=== PATIENT | female | born 1955 | race Caucasian/White ===

== ENCOUNTER 2022-05-23 23:17 | Inpatient (IN) | payer MEDICARE, SELFPAY ==
--- NOTE | 2022-05-23 | ECG_ITS ---
Test Reason : CHEST PAIN Blood Pressure : / mmHG Vent. Rate : 067 BPM Atrial Rate : 067 BPM P-R Int : 168 ms QRS Dur : 090 ms QT Int : 454 ms P-R-T Axes : 053 038 026 degrees QTc Int : 479 ms Normal sinus rhythm RSR' or QR pattern in V1 suggests right ventricular conduction delay Nonspecific T wave abnormality Inferior leads Abnormal ECG When compared with ECG of 23-MAY-2022 23:24, T wave inversion now evident in Inferior leads Referred By: Em Salguero Electronically Signed By:ONI MEDELLIN MD
--- NOTE | ~2022-05-23 | CT_ITS ---
EXAMINATION: CT ANGIOGRAM OF THE CHEST; CT ANGIOGRAM OF THE ABDOMEN AND PELVIS INDICATION: Chest pain, hypertension COMPARISON: None TECHNIQUE: 85 MLO Omnipaque 350 IV contrast was utilized. Multidetector helical imaging was performed through the chest, abdomen, and pelvis. Coronal and sagittal reformatted images were created at the technologist workstation. DLP: 766 mGy-cm DOSE LOWERING TECHNIQUES: This CT examination was performed using dose optimization techniques as appropriate, variously including the following: - Automated exposure control - Adjustment of mA and/or kV according to patient size (this includes techniques or standardized protocols for targeted exams were dose is matched to indication/reason for exam; i.e. extremities or head) - Use of iterative reconstruction technique FINDINGS: Chest: No evidence of thoracic aortic aneurysm or dissection. 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 No central pulmonary embolus identified. No regions of consolidation bilaterally. There are multiple scattered subcentimeter nodules bilaterally, mostly measuring less than 5 mm, best seen on the axial MIP series. These appear overall greatest in number towards the lung bases. No pneumothorax or pleural effusion. Visualized thyroid gland is grossly unremarkable. There are subcentimeter mediastinal lymph nodes within the range of normal variation. Cardiac size is within normal limits; no pericardial effusion. No axillary lymphadenopathy is present. Abdomen/Pelvis: The liver is homogeneous in attenuation without intrahepatic biliary ductal dilatation. The gallbladder is unremarkable. The spleen, pancreas, and adrenal glands are within normal limits. Bilateral nephrograms are symmetric. No hydronephrosis. No obstructing renal or ureteral calculi are present. Small right renal cyst noted; no follow-up recommended. The urinary bladder is unremarkable. Multiple calcifications noted along the periphery of the uterus, which may reflect fibroids or vascular calcifications. No evidence of bowel obstruction. There is colonic diverticulosis without convincing diverticulitis. Appendix appears collapsed. No free fluid or free air is identified. No evidence of aortic aneurysm or dissection. The celiac, superior mesenteric, bilateral renal, and inferior mesenteric arteries are patent. An accessory left renal artery is noted. The bilateral iliac and visualized proximal femoral arteries are patent. No retroperitoneal or pelvic lymphadenopathy is seen. Mild scattered degenerative endplate changes in the spine. CT/CT angio abdomen pelvis IMPRESSION: 1. No evidence of aortic aneurysm or dissection. 2. Multiple scattered subcentimeter lung nodules, greatest in number towards the lung bases. These are nonspecific and may be infectious/inflammatory in etiology, though pulmonary metastases could also have this appearance. Clinical correlation is recommended. If no prior studies are available to assess chronicity, follow-up chest CT in 3 months is recommended. 3. Colonic diverticulosis without convincing diverticulitis.
--- NOTE | 2022-05-23 09:07 | ECG_ITS ---
Test Reason : chest pain Blood Pressure : / mmHG Vent. Rate : 053 BPM Atrial Rate : 053 BPM P-R Int : 190 ms QRS Dur : 088 ms QT Int : 516 ms P-R-T Axes : 046 003 -48 degrees QTc Int : 484 ms Sinus bradycardia T wave abnormality, consider anterolateral ischemia Abnormal ECG When compared with ECG of 24-MAY-2022 00:26, T wave inversion more evident in Inferior leads T wave inversion now evident in Anterolateral leads Referred By: Pasha Bolivar Electronically Signed By:ONI MEDELLIN MD
[2022-05-23 23:23] VITALS: BMI 30.9
[2022-05-23 23:24] VITALS: BP 204/127; PULSE 76; PULSE 77; RESP 11; O2SAT 99
[2022-05-23 23:54] LABS: MANUAL DIFF FLAG NO
[2022-05-23 23:55] LABS: Basophils Percent Auto 0.1 % (0-2); Eosinophils Absolute Auto 0.1 X10*3/uL (0.0-0.4); Eosinophils Percent Auto 1.3 % (0-4); Hematocrit 41.5 % (37.0-47.0); Hemoglobin 13.3 g/dl (12.0-16.0); Imm Gran Abs Auto 0.03 X10*3/uL (0.00-0.03); Imm Gran Pct Auto 0.4 % (0.0-0.4); Lymphocytes Absolute Auto 2.9 X10*3/uL (1.2-4.9); Lymphocytes Percent Auto 35.5 % (20-40); Mean Corpuscular Hemoglobin 28.1 pg (27.0-33.0); Mean Corpuscular Volume 87.6 fL (80.0-98.0); Mean Platelet Volume 8.9 fL (9.4-12.3); Monocytes Absolute Auto 0.5 X10*3/uL (0.1-1.2); Monocytes Percent Auto 5.8 % (2-11); Neutrophils Absolute Auto 4.7 x10*3/uL (2.0-8.3); Neutrophils Percent Auto 56.9 % (45-73); Platelet Count 186 X10*3/uL (160-400); Red Blood Count 4.74 X10*6/uL (4.20-5.50); Red Cell Distribution Width 14.6 % (11.0-16.0); White Blood Count 8.3 X10*3/uL (4.8-10.8)
[2022-05-24] VITALS (8 sets, daily range): BP systolic 138–172; BP diastolic 71–96; PULSE 56–69; RESP 10–21; TEMP 36.2–36.8; O2SAT 98–100; BMI 34.4
--- NOTE | 2022-05-24 00:01 | ED_ITS ---
HPI - Chest Pain General Chief Complaint: Chest Pain Stated Complaint: Chest pain Time Seen by Provider: 05/23/22 23:29 Source: patient and family Mode of arrival: ambulatory History of Present Illness HPI narrative: 66-year-old female with history of hypertension presents with onset of substernal chest pain that she states radiates into her back as well as into her left upper extremity that started while she was out with friends. Patient states she has been drinking alcohol and has had similar symptoms previously that were diagnosed as a panic attack. She denies any recent fever, chills, shortness of breath, GI or symptoms. She also denies being on any blood thinners. Related Data Allergies Allergy/AdvReac Type Severity Reaction Status Date / Time Unable to Assess Allergy Verified 05/23/22 23:30 Review of Systems Review of Systems: Pertinent positives and negatives as stated in HPI 10 point review of systems is otherwise negative. PMFSH Past Medical History Source: nursing notes reviewed Social History Social History Alcohol intake: current Alcohol intake frequency: a few times a month Alcohol type: beer and hard liquor Smoked in Last 30 Days: No Use of substances other than those prescribed or required for medical reasons: No Advance Directives: No Advance Directives Information Provided: No Physical Exam Vital Signs: Vital Signs: Last Vital Signs Temp 98.1 F 05/24/22 01:18 ED T Pulse 66 05/24/22 01:18 ED T Resp 16 05/24/22 01:18 ED T BP 166/84 H 05/24/22 01:18 ED T Pulse Ox 98 05/24/22 01:18 ED T O2 Del Method 05/24/22 01:18 ED T BMI result Body Mass Index 30.9 VITAL SIGNS: Reviewed. GENERAL: Well developed, well nourished, in no acute distress. HEAD: Normocephalic/atraumatic EYES: PERRLA, EOMI EARS: Ext canals without abnormality OROPHARYNX: no oral lesions noted, posterior pharynx clear LUNGS: Normal breath sounds. No adventitious sounds or accessory muscle use. SpO2<99> CARDIOVASCULAR: Regular rate and rhythm without noted murmurs, no JVD or lower extremity edema. ABDOMEN: Soft, non-tender, non-distended with bowel sounds. MUSCULOSKELETAL: No tenderness, deformities, or effusions noted on gross inspection. EXTREMITIES: No cyanosis, clubbing or edema;LUE: warm to touch, palpable radial/ulnar pulses. SKIN: Inspection of the skin reveals no rashes NEUROLOGIC: Alert and oriented x 4. Strength and sensation to light touch were grossly intact x 4. Course Course Course Narrative: 66-year-old female with history and clinical presentation concerning for possible dissection given the fact her blood pressure is over 200 systolic and 124 diastolic. Review of all investigations thus far without acute findings, troponin is 8.9 with an EKG that is otherwise benign, will repeat he 2nd troponin as well. CT dissection protocol spending, patient already appears much improved without any medication intervention to include the blood pressure. MDM - Chest Pain Lab Data Result diagrams: 05/23/22 23:51 05/23/22 23:51 Labs: Lab Results 05/23/22 05/23/22 05/23/22 Range/Units 23:51 23:51 23:51 WBC 8.3 (4.8-10.8) X10*3/uL RBC 4.74 (4.20-5.50) X10*6/uL Hgb 13.3 (12.0-16.0) g/dl Hct 41.5 (37.0-47.0) % MCV 87.6 (80.0-98.0) fL MCH 28.1 (27.0-33.0) pg MCHC 32.0 (31.0-35.0) g/dl RDW 14.6 (11.0-16.0) % Plt Count 186 (160-400) X10*3/uL MPV 8.9 L (9.4-12.3) fL Immature Gran % (Auto) 0.4 (0.0-0.4) % Neut % (Auto) 56.9 (45-73) % Lymph % (Auto) 35.5 (20-40) % [place] % (Auto) 5.8 (2-11) % Eos % (Auto) 1.3 (0-4) % Baso % (Auto) 0.1 (0-2) % Lymph # (Auto) 2.9 (1.2-4.9) X10*3/uL [place] # (Auto) 0.5 (0.1-1.2) X10*3/uL Eos # (Auto) 0.1 (0.0-0.4) X10*3/uL Baso # (Auto) 0.0 (0.0-0.2) X10*3/uL Abs Immat Gran (auto) 0.03 (0.00-0.03) X10*3/uL Absolute Neuts (auto) 4.7 (2.0-8.3) x10*3/uL Absolute Nucleated RBC 0.000 (0.0-0.012) X10*3/uL Nucleated RBC % (auto) 0.0 (0.0-0.2) /100WBC Sodium 142 (135-145) mmol/L Potassium 4.4 (3.3-5.1) mmol/L Chloride 105 (96-108) mmol/L Carbon Dioxide 23 (22-29) mmol/L Anion Gap 18 (12-20) BUN 14 (9-16) mg/dL Creatinine 0.90 (0.5-1.4) mg/dL Estim Creat Clear Calc 63.5 Estimated GFR > 60 Random Glucose 98 (60-115) mg/dL Calcium 9.1 (8.4-10.2) mg/dL Total Bilirubin 0.5 (0.0-1.0) mg/dL AST 22 (5-31) U/L ALT 16 (0-31) U/L Alkaline Phosphatase 78 (39-117) U/L Troponin I High Sens 8.9 (<3.5-17.0) ng/L Total Protein 7.3 (6.5-8.0) g/dL Albumin 4.2 (3.5-5.0) g/dL ECG Data ECG #1: Attestation: I personally reviewed and interpreted this ECG as follows: Prior ECG tracings: not available for review Interpretation: Normal sinus rhythm, HR-67, no STEMI, AR/QRS/QTC are within normal limits. Discharge Plan Discharge Clinical Impression: Chest pain Patient Disposition: Still a Patient Instructions: Chest Pain (ED), Hypertension (ED), DASH Eating Plan (ED)
[2022-05-24 00:19] LABS: Alanine Aminotransferase 16 U/L (0-31); Albumin Level 4.2 g/dL (3.5-5.0); Anion Gap 18 (12-20); Aspartate Amino Transferase 22 U/L (5-31); Bilirubin Total 0.5 mg/dL (0.0-1.0); Blood Urea Nitrogen 14 mg/dL (9-16); Calcium 9.1 mg/dL (8.4-10.2); Carbon Dioxide 23 mmol/L (22-29); Chloride 105 mmol/L (96-108); Creatinine Clr Calc Pharmacy 63.5; Estimated Glomerular Filt Rate > 60; Glucose Random 98 mg/dL (60-115); Potassium 4.4 mmol/L (3.3-5.1); Sodium 142 mmol/L (135-145); Total Protein 7.3 g/dL (6.5-8.0)
[2022-05-24 00:20] LABS: Alkaline Phosphatase 78 U/L (39-117)
[2022-05-24 00:22] LABS: Troponin-I High Sensitivity 8.9 ng/L (<3.5-17.0)
[2022-05-24] MEDS: iohexoL 350 MG/ML 100 ML INFUS..BTL IV (01:35)
[2022-05-24 03:03] LABS: Troponin-I High Sensitivity 366.3 ng/L (<3.5-17.0)
[2022-05-24] MEDS: Aspirin Enteric Coated 325 MG TABLET.DR PO (03:25)
--- NOTE | 2022-05-24 05:11 | PC.NURSE ---
Pt ambulated from bed to restroom and back independently. New set of vitals obtained, placed on monitor upon arrival on unit.
--- NOTE | 2022-05-24 06:14 | P.HPHOSP_ITS ---
History of Present Illness Date of Service: 05/24/22 Chief Complaint: chest pain 66-year-old female with past medical history of hypertension , hypothyroidism, asthma presents to the hospital with complaints of midsternal chest pain. Patient reports that the pain started while she was at a restaurant, the pain is on the left side of her chest, severe, radiating to left arm, lasted until she arrived at the ED, associated with some anxiety and shortness of breath. Patient denied having any headache, no change in vision, no palpitations, no abdominal pain nausea or vomiting, no diarrhea constipation, no urinary symptoms and no lower extremity edema Of note patient comes from [place], she reports that she was seen in [place] few days before for the same pain and at that time they told her that she was having a panic attack as her blood pressure was significantly elevated. On arrival to the ED her vitals are significant for a systolic blood pressure of 204/127, Labs are significant for WBC count of 8.3, hemoglobin of 13.3, CBC and CMP otherwise unremarkable. Troponin of 8.9 that increased to 366 increased to [address] T-wave changes Review of Systems Review of Systems: Yes all other systems are reviewed and are negative [facility] Medical History (Updated 05/24/22 @ 06:34 by Brayan Bennett MD) Asthma Hypertension Hypothyroidism Family History (Updated 05/24/22 @ 06:34 by Brayan Bennett MD) Father Coronary artery disease Surgical History (Updated 05/24/22 @ 06:34 by Brayan Bennett MD) History of Social History Alcohol intake: current Alcohol intake frequency: a few times a month Alcohol type: beer and hard liquor Smoked in Last 30 Days: No Use of substances other than those prescribed or required for medical reasons: No Advance Directives: No Advance Directives Information Provided: No Meds Allergies Allergy/AdvReac Type Severity Reaction Status Date / Time Unable to Assess Allergy Verified 05/23/22 23:30 Active Medications: Current Medications Acetaminophen (Acetaminophen 325 Mg Tablet) 650 mg PO Q6H PRN PRN Reason: Pain, Mild (Pain Scale 1-3) Docusate Sodium (Docusate Sodium 100 Mg Capsule) 100 mg PO DAILY PRN PRN Reason: Constipation Ondansetron HCl (Ondansetron Hcl 4 Mg/2 Ml Vial) 4 mg IVPUSH Q8H PRN PRN Reason: Nausea and Vomiting Sodium Chloride (0.9 % Sodium Chloride Flush 3 Ml Syringe) 3 ml IVFLUSH QSHIFT PAUL Physical Exam Vital Signs and Narrative: Vital Signs: Last Vital Signs Temp 97.1 F 05/24/22 04:00 Pulse 63 05/24/22 04:00 Resp 16 05/24/22 04:00 BP 168/90 H 05/24/22 04:00 Pulse Ox 98 05/24/22 04:00 O2 Del Method 05/24/22 04:00 BMI result Body Mass Index 30.9 Const: General: cooperative and no acute distress Orientation/consciousness: patient oriented x3 Eyes: General: appearance normal, both eyes and all related structures Resp: Effort & Inspection: normal respiratory effort Auscultation: clear to auscultation bilaterally Cardio: Rate: regular rate Rhythm: regular rhythm GI: Palpation (GI): Soft to palpation Auscultation: normal bowel sounds Skin: General skin exam: no rashes or lesions noted Neuro: General: patient oriented x3 Cognition (Neuro): normal cognition Extrem: General: Yes normal to inspection and Yes no pedal edema Results Labs CBC and Chem 7: 05/23/22 23:51 05/23/22 23:51 Labs: Laboratory Results - last 24 hr 05/23/22 05/23/22 05/23/22 23:51 23:51 23:51 MCV 87.6 MCH 28.1 MCHC 32.0 RDW 14.6 Plt Count 186 MPV 8.9 L Immature Gran % (Auto) 0.4 Neut % (Auto) 56.9 Lymph % (Auto) 35.5 [place] % (Auto) 5.8 Eos % (Auto) 1.3 Baso % (Auto) 0.1 Lymph # (Auto) 2.9 [place] # (Auto) 0.5 Eos # (Auto) 0.1 Baso # (Auto) 0.0 Abs Immat Gran (auto) 0.03 Absolute Neuts (auto) 4.7 Absolute Nucleated RBC 0.000 Nucleated RBC % (auto) 0.0 Anion Gap 18 Estim Creat Clear Calc 63.5 Estimated GFR > 60 Random Glucose 98 Calcium 9.1 Total Bilirubin 0.5 AST 22 ALT 16 Alkaline Phosphatase 78 Troponin I High Sens 8.9 Total Protein 7.3 Albumin 4.2 05/24/22 05/24/22 02:07 03:32 MCV MCH MCHC RDW Plt Count MPV Immature Gran % (Auto) Neut % (Auto) Lymph % (Auto) [place] % (Auto) Eos % (Auto) Baso % (Auto) Lymph # (Auto) [place] # (Auto) Eos # (Auto) Baso # (Auto) Abs Immat Gran (auto) Absolute Neuts (auto) Absolute Nucleated RBC Nucleated RBC % (auto) Anion Gap Estim Creat Clear Calc Estimated GFR Random Glucose Calcium Total Bilirubin AST ALT Alkaline Phosphatase Troponin I High Sens 366.3 H* D 405.0 H* Total Protein Albumin Imaging Radiologist's Impressions: Impressions Abdomen/Pelvis CTA 05/24/22 01:20 EST IMPRESSION: 1. No evidence of aortic aneurysm or dissection. 2. Multiple scattered subcentimeter lung nodules, greatest in number towards the lung bases. These are nonspecific and may be infectious/inflammatory in etiology, though pulmonary metastases could also have this appearance. Clinical correlation is recommended. If no prior studies are available to assess chronicity, follow-up chest CT in 3 months is recommended. 3. Colonic diverticulosis without convincing diverticulitis. Chest CTA 05/24/22 01:30 EST IMPRESSION: 1. No evidence of aortic aneurysm or dissection. 2. Multiple scattered subcentimeter lung nodules, greatest in number towards the lung bases. These are nonspecific and may be infectious/inflammatory in etiology, though pulmonary metastases could also have this appearance. Clinical correlation is recommended. If no prior studies are available to assess chronicity, follow-up chest CT in 3 months is recommended. 3. Colonic diverticulosis without convincing diverticulitis. Assessment and Plan (1) NSTEMI (non-ST elevated myocardial infarction): Status: Acute (2) Chest pain: Status: Acute (3) Hypertensive emergency: Status: Acute Plan 66-year-old female with past medical history of hypertension presents to the hospital with complaints of chest pain found to have elevated blood pressure # chest pain/NSTEMI - likely NSTEMI - typical cardiac pain, with elevated troponin, with significant delta - spoke with Cardiology, will start on heparin - aspirin, metoprolol, and statin - echocardiogram ordered - cardiology consulted # hypertensive emergency - presented with blood pressure of 214/127 - patient reports poorly controlled blood pressure in the past - med rec pending by pharmacy as [place] is [place] of [place] and does not remember her medications DVT prophylaxis: Heparin Given patient's NSTEMI, requires a minimum 2 inpatient hospital stay for further management and evaluation Quality Stroke Does the patient have a stroke diagnosis?: No VTE Prior VTE?: No VTE Risk Level:: Medical - low VTE Device Contraindication: Treatment Not Indicated VTE Drug Contraindication: Treatment Not Indicated
[2022-05-24 06:46] LABS: MANUAL DIFF FLAG NO
[2022-05-24 07:01] LABS: Basophils Percent Auto 0.3 % (0-2); Eosinophils Absolute Auto 0.1 X10*3/uL (0.0-0.4); Eosinophils Percent Auto 1.5 % (0-4); Hematocrit 39.4 % (37.0-47.0); Hemoglobin 12.6 g/dl (12.0-16.0); Imm Gran Abs Auto 0.02 X10*3/uL (0.00-0.03); Imm Gran Pct Auto 0.3 % (0.0-0.4); Lymphocytes Absolute Auto 2.7 X10*3/uL (1.2-4.9); Lymphocytes Percent Auto 36.8 % (20-40); Mean Corpuscular Hemoglobin 28.1 pg (27.0-33.0); Mean Corpuscular Volume 87.9 fL (80.0-98.0); Mean Platelet Volume 9.2 fL (9.4-12.3); Monocytes Absolute Auto 0.5 X10*3/uL (0.1-1.2); Monocytes Percent Auto 7.3 % (2-11); Neutrophils Percent Auto 53.8 % (45-73); Platelet Count 180 X10*3/uL (160-400); Red Blood Count 4.48 X10*6/uL (4.20-5.50); Red Cell Distribution Width 14.8 % (11.0-16.0); White Blood Count 7.4 X10*3/uL (4.8-10.8)
[2022-05-24 07:03] LABS: Anion Gap 16 (12-20); Blood Urea Nitrogen 11 mg/dL (9-16); Calcium 8.9 mg/dL (8.4-10.2); Carbon Dioxide 24 mmol/L (22-29); Chloride 106 mmol/L (96-108); Cholesterol 157 mg/dL; Creatinine Clr Calc Pharmacy 81.7; Estimated Glomerular Filt Rate > 60; Glucose Random 92 mg/dL (60-115); HDL Cholesterol 54 mg/dL; LDL Cholesterol Calculated 93 mg/dl; Potassium 3.8 mmol/L (3.3-5.1); Sodium 142 mmol/L (135-145); Triglycerides 51 mg/dL
[2022-05-24 07:05] LABS: INTERNATIONAL NORM RATIO 1.1 (0.9-1.1); Prothrombin Time 12.5 SEC (10.0-13.1)
[2022-05-24 07:07] LABS: PTT Heparin Drip 32.8 SEC (53-77.9)
[2022-05-24 07:12] LABS: Troponin-I High Sensitivity 373.8 ng/L (<3.5-17.0)
[2022-05-24] MEDS: Heparin Sodium,Porcine 5,000 UNIT/ML VIAL 7300 UNIT IVPUSH (07:57)
[2022-05-24] MEDS: Heparin Sodium,Porcine/1/2NS 25,000 UNIT/250 ML IV.SOLN 25 UNIT IVCONT (07:58)
[2022-05-24 08:17] LABS: Estimated Average Glucose 108 mg/dL; Hemoglobin A1c % 5.4 %
--- NOTE | 2022-05-24 08:21 | PC.NURSE ---
Addendum entered by Barbara Grossman 05/24/22 08:24: troponin 373.8. Communicated to propellant charge zone assembler in main ED, who will tigertext admitting provider. Original Note: received patient in bed, awake and oriented. MERCEDES, follows commands, speech clear and coherent. Pt states no resp difficluty, lungs CTA. CM shows NSR -> SB rate 50s and 60s. Patient denies CP, nausea, SOB. Abd soft, nontender, (+)BS x 4. Skin warm, dry and intact. IV to RAC with heparin protocol started. Bolus given, heparin drip started 8a, next PTT ordered for 2p. Awaiting cardiology consult.
--- NOTE | 2022-05-24 09:04 | PHA.MEDREC ---
Pharmacy Consult ? Medication Reconciliation Pharmacy has completed the medication reconciliation. Patient states they were recently switched from carvedilol to metoprolol by their PCP in [place], however haven't started it yet. Patient claims to be on both Hydrochlorothiazide and furosemide, however has poor adherence due to increased urinary frequency. Last time furosemide was taken was 05/19/22.
--- NOTE | 2022-05-24 09:39 | P.CONCA_ITS ---
History of Present Illness History of Present Illness Date of Service: 05/24/22 Chief complaint: r/o acs Narrative: This is a cardiology consultation regarding elevated troponins and suspicion of NSTEMI. Patient is originally from [place]. She states that she came here to visit friends and family. Current admission is for chest pain. 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 Some shortness of breath. Patient states that she is getting these pains more frequently in the last few months. 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 She states she had a stress test more than a year ago and that was unremarkable but we do not have any results. Otherwise, she states she does get short of breath at different times and she thought was from asthma. She also gets palpitations at different times. Unknown etiology. Currently, she is on IV heparin drip. Of note, she was recently at a hospital in [place] for similar symptoms and they told her that was a panic attack as the blood pressure was very high. Even on this occasion, her blood pressure is again very high over 200mmHg. Hence not clear if it is primary NSTEMI or secondary NSTEMI. Review of Systems Review of Systems: Yes all other systems are reviewed and are negative Constitutional: Constitutional: Reports as per HPI Eyes: Eyes: Reports as per HPI ENT: Reports as per HPI Cardiovascular: Cardiovascular: Reports as per HPI, Denies acrocyanosis, Denie s cool extremities, Reports chest pain, Denies leg edema, Denies lightheadedness, Denies palpitations and Denies dyspnea Respiratory: Respiratory: Reports as per HPI, Reports no additional respiratory complaints and Denies dyspnea Gastrointestinal: Gastrointestinal: Reports as per HPI and Reports no additional gastrointestinal complaints Genitourinary: Genitourinary: Reports as per HPI Musculoskeletal: Musculoskeletal: Reports no additional musculoskeletal complaints and Reports as per HPI Integumentary/Breasts: Skin/Breast: Reports system reviewed and no additional complaints, except as docu Neurologic: Reports system reviewed and no additional complaints, except as documented and Reports as per HPI Psychiatric: Psychiatric: Reports no additional psychiatric complaints and Reports as per HPI Endocrine: Endocrine: Reports no additional endocrine complaints, Reports as per HPI and Denies palpitations Hematologic/Lymphatic: Hematologic/Lymphatic: Reports no additional hematologic/lymphatic complaints and Reports as per HPI Allergic/Immunologic: Allergic/Immunologic: Reports no additional allergic/immunologic complaints and Reports as per HPI [facility] Past Medical History Medical History (Updated 05/24/22 @ 06:34 by Brayan Bennett MD) Asthma Hypertension Hypothyroidism Family History Family History (Updated 05/24/22 @ 06:34 by Brayan Bennett MD) Father Coronary artery disease Surgical History Surgical History (Updated 05/24/22 @ 06:34 by Brayan Bennett MD) History of Social History Social History Alcohol intake: current Alcohol intake frequency: a few times a month Alcohol type: beer and hard liquor Smoked in Last 30 Days: No Use of substances other than those prescribed or required for medical reasons: No Advance Directives: No Advance Directives Information Provided: No Meds Allergies Allergy/AdvReac Type Severity Reaction Status Date / Time Unable to Assess Allergy Verified 05/23/22 23:30 Active Medications: Current Medications Acetaminophen (Acetaminophen 325 Mg Tablet) 650 mg PO Q6H PRN PRN Reason: Pain, Mild (Pain Scale 1-3) Aspirin (Aspirin 81 Mg Tab.Chew) 81 mg PO DAILY [facility] Atorvastatin Calcium (Atorvastatin Calcium 40 Mg Tablet) 40 mg PO BEDTIME PAUL Docusate Sodium (Docusate Sodium 100 Mg Capsule) 100 mg PO DAILY PRN PRN Reason: Constipation Heparin Sodium (Porcine) (Heparin Sodium,Porcine 5,000 Unit/Ml Vial) 3,600 unit 40 unit/kg (3600 unit) IVPUSH PROTOCOL BOLUS PRN; Protocol PRN Reason: 40 unit/kg - Heparin Protocol Heparin Sodium (Porcine) (Heparin Sodium,Porcine 5,000 Unit/Ml Vial) 7,300 unit 80 unit/kg (7300 unit) IVPUSH PROTOCOL BOLUS PRN; Protocol PRN Reason: 80 unit/kg - Heparin Protocol Heparin Sodium/Sodium Chloride (Heparin Sodium,Porcine/1/2ns) 25,000 unit in 250 mls @ 0 mls/hr IVCONT .Q0M PAUL; Protocol Last Admin: 05/24/22 07:58 Dose: 27.44 units/kg/hr, 25 mls/hr Metoprolol Tartrate (Metoprolol Tartrate 25 Mg Tablet) 25 mg PO BID [facility]; Protocol Ondansetron HCl (Ondansetron Hcl 4 Mg/2 Ml Vial) 4 mg IVPUSH Q8H PRN PRN Reason: Nausea and Vomiting Pharmacy Consult (Consult Rx Perform Med Rec) 1 each MISCELLANE ONCE PRN PRN Reason: Consult order Pharmacy Consult (Consult Rx Perform Med Rec) 1 each MISCELLANE STAT STA Stop: 05/24/22 07:32 Sodium Chloride (0.9 % Sodium Chloride Flush 3 Ml Syringe) 3 ml IVFLUSH [facility] Medications Medication Instructions Recorded Confirmed Last Taken Type albuterol sulfate 90 mcg/actuation 2 puff inhalation Q4-6H PRN 05/24/22 05/24/22 Unknown History aerosol inhaler respiratory symptoms aspirin 81 mg tablet,delayed 1 tab PO DAILY 05/24/22 05/24/22 05/23/22 History release carvedilol 6.25 mg tablet 1 tab PO BID 05/24/22 05/24/22 05/23/22 History furosemide 20 mg tablet 1 tab PO DAILY 05/24/22 05/24/22 05/19/22 History hydrochlorothiazide 25 mg tablet 1 tab PO DAILY 05/24/22 05/24/22 Unknown History ibuprofen 600 mg tablet 1 tab PO Q8H PRN Pain 05/24/22 05/24/22 Unknown History levothyroxine 50 mcg tablet 1 tab PO DAILY@0600 05/24/22 05/24/22 05/23/22 History rosuvastatin 10 mg tablet 1 tab PO BEDTIME 05/24/22 05/24/22 05/23/22 History temazepam 15 mg capsule 1 cap PO BEDTIME PRN Insomnia 05/24/22 05/24/22 Unknown History Physical Exam Vital Signs: Vital Signs: Last Vital Signs Temp 97.2 F 05/24/22 07:30 Pulse 60 05/24/22 09:11 Resp 13 05/24/22 09:11 BP 138/71 05/24/22 09:11 Pulse Ox 99 05/24/22 07:30 O2 Del Method 05/24/22 07:30 BMI result Body Mass Index 34.4 Const: General: comfortable and no acute distress Orientation/consciousness: patient oriented x3 HEENT: Other: Unremarkable Head: Yes normal to inspection Neck: Neck: Yes normal visual inspection Chest: Chest palpation & inspection: normal inspection of the chest Resp: Auscultation: clear to auscultation bilaterally Cardio: Palpation: normal PMI Heart sounds: S1 normal heart sound present, S2 normal heart sound present, no gallops, no murmurs and no rubs GI: Palpation (GI): Soft to palpation Back/Spine/Pelvis: Other: unremarkable Skin: General skin exam: no rashes or lesions noted Neuro: General: patient oriented x3 Extrem: General: Yes normal to inspection Psych: Mental Status: mental status grossly normal Objective Labs and Meds Result diagrams: 05/24/22 06:28 05/24/22 06:33 Lab results: Laboratory Results - last 24 hr 05/23/22 05/23/22 05/23/22 23:51 23:51 23:51 WBC 8.3 RBC 4.74 Hgb 13.3 Hct 41.5 MCV 87.6 MCH 28.1 MCHC 32.0 RDW 14.6 Plt Count 186 MPV 8.9 L Immature Gran % (Auto) 0.4 Neut % (Auto) 56.9 Lymph % (Auto) 35.5 Zapata % (Auto) 5.8 Eos % (Auto) 1.3 Baso % (Auto) 0.1 Lymph # (Auto) 2.9 Zapata # (Auto) 0.5 Eos # (Auto) 0.1 Baso # (Auto) 0.0 Abs Immat Gran (auto) 0.03 Absolute Neuts (auto) 4.7 Absolute Nucleated RBC 0.000 Nucleated RBC % (auto) 0.0 PT INR aPTT Heparin Protocol Sodium 142 Potassium 4.4 Chloride 105 Carbon Dioxide 23 Anion Gap 18 BUN 14 Creatinine 0.90 Estim Creat Clear Calc 63.5 Estimated GFR > 60 Random Glucose 98 Estimat Average Glucose Hemoglobin A1c % Calcium 9.1 Total Bilirubin 0.5 AST 22 ALT 16 Alkaline Phosphatase 78 Troponin I High Sens 8.9 Total Protein 7.3 Albumin 4.2 Triglycerides Cholesterol LDL Cholesterol, Calc HDL Cholesterol 05/24/22 05/24/22 05/24/22 02:07 03:32 06:28 WBC 7.4 RBC 4.48 Hgb 12.6 Hct 39.4 MCV 87.9 MCH 28.1 MCHC 32.0 RDW 14.8 Plt Count 180 MPV 9.2 L Immature Gran % (Auto) 0.3 Neut % (Auto) 53.8 Lymph % (Auto) 36.8 Zapata % (Auto) 7.3 Eos % (Auto) 1.5 Baso % (Auto) 0.3 Lymph # (Auto) 2.7 Zapata # (Auto) 0.5 Eos # (Auto) 0.1 Baso # (Auto) 0.0 Abs Immat Gran (auto) 0.02 Absolute Neuts (auto) 4.0 Absolute Nucleated RBC 0.000 Nucleated RBC % (auto) 0.0 PT INR aPTT Heparin Protocol Sodium Potassium Chloride Carbon Dioxide Anion Gap BUN Creatinine Estim Creat Clear Calc Estimated GFR Random Glucose Estimat Average Glucose Hemoglobin A1c % Calcium Total Bilirubin AST ALT Alkaline Phosphatase Troponin I High Sens 366.3 H* D 405.0 H* Total Protein Albumin Triglycerides Cholesterol LDL Cholesterol, Calc HDL Cholesterol 05/24/22 05/24/22 05/24/22 06:31 06:33 06:33 WBC RBC Hgb Hct MCV MCH MCHC RDW Plt Count MPV Immature Gran % (Auto) Neut % (Auto) Lymph % (Auto) Zapata % (Auto) Eos % (Auto) Baso % (Auto) Lymph # (Auto) Zapata # (Auto) Eos # (Auto) Baso # (Auto) Abs Immat Gran (auto) Absolute Neuts (auto) Absolute Nucleated RBC Nucleated RBC % (auto) PT INR aPTT Heparin Protocol Sodium 142 Potassium 3.8 Chloride 106 Carbon Dioxide 24 Anion Gap 16 BUN 11 Creatinine 0.74 Estim Creat Clear Calc 81.7 Estimated GFR > 60 Random Glucose 92 Estimat Average Glucose 108 Hemoglobin A1c % 5.4 Calcium 8.9 Total Bilirubin AST ALT Alkaline Phosphatase Troponin I High Sens 373.8 H* Total Protein Albumin Triglycerides 51 Cholesterol 157 LDL Cholesterol, Calc 93 HDL Cholesterol 54 05/24/22 06:40 WBC RBC Hgb Hct MCV MCH MCHC RDW Plt Count MPV Immature Gran % (Auto) Neut % (Auto) Lymph % (Auto) Zapata % (Auto) Eos % (Auto) Baso % (Auto) Lymph # (Auto) Zapata # (Auto) Eos # (Auto) Baso # (Auto) Abs Immat Gran (auto) Absolute Neuts (auto) Absolute Nucleated RBC Nucleated RBC % (auto) PT 12.5 INR 1.1 aPTT Heparin Protocol 32.8 L Sodium Potassium Chloride Carbon Dioxide Anion Gap BUN Creatinine Estim Creat Clear Calc Estimated GFR Random Glucose Estimat Average Glucose Hemoglobin A1c % Calcium Total Bilirubin AST ALT Alkaline Phosphatase Troponin I High Sens Total Protein Albumin Triglycerides Cholesterol LDL Cholesterol, Calc HDL Cholesterol ECG Interpretation: EKG shows normal sinus rhythm at 67/Min; no significant ST-T changes and otherwise unremarkable. Normal NE and corrected QT. Imaging Radiologist's impression: Impressions Abdomen/Pelvis CTA 05/24/22 01:20 EST IMPRESSION: 1. No evidence of aortic aneurysm or dissection. 2. Multiple scattered subcentimeter lung nodules, greatest in number towards the lung bases. These are nonspecific and may be infectious/inflammatory in etiology, though pulmonary metastases could also have this appearance. Clinical correlation is recommended. If no prior studies are available to assess chronicity, follow-up chest CT in 3 months is recommended. 3. Colonic diverticulosis without convincing diverticulitis. Chest CTA 05/24/22 01:30 EST IMPRESSION: 1. No evidence of aortic aneurysm or dissection. 2. Multiple scattered subcentimeter lung nodules, greatest in number towards the lung bases. These are nonspecific and may be infectious/inflammatory in etiology, though pulmonary metastases could also have this appearance. Clinical correlation is recommended. If no prior studies are available to assess chronicity, follow-up chest CT in 3 months is recommended. 3. Colonic diverticulosis without convincing diverticulitis. Assessment and Plan (1) NSTEMI (non-ST elevated myocardial infarction): Status: Acute (2) Hypertensive emergency: Status: Acute (3) Chest pain: Status: Acute Plan Labs reviewed. High sensitivity troponins started at 8.9. Then 366 followed by 405. Most recently 373. Suggestive of non ST elevation myocardial infarction. However, blood pressure was also quite 204/120 7 mm Hg upon arrival. Hence is not very clear if it is a primary NSTEMI or secondary NSTEMI as EKGs unremarkable. Most recent blood pressure is 138/70 mm Hg. At this time, we will treat with IV heparin drip. In the home meds, she seen carvedilol. We can keep that but increase the dose. With regard diuretics, she is on furosemide and hydrochlorothiazide. Not clear why. She is also on statins. Overall, we will manage her for both hypertension as well as NSTEMI at this time. Echocardiogram tomorrow. Then subsequently likely transfer to [facility] for cardiac catheterization. Chest CT findings also reviewed. Discussed with Dr. Bolivar. Procedures Date of Service Date of Service: 05/24/22
[2022-05-24 09:55] LABS: COVID-19 Test Negative (Negative); IDNOW Serial# 9DB6401D
[2022-05-24] MEDS: 0.9 % Sodium Chloride Flush 3 ML SYRINGE IVFLUSH ×2 (10:30→23:20)
[2022-05-24] MEDS: Aspirin 81 MG TAB.CHEW PO (10:30)
--- NOTE | 2022-05-24 10:34 | PC.NURSE ---
pt seen by cardiology, plan is to transfer to [facility] for interventional cardiology. Pt aware of plan. Heparin drip continues per order. Meds awaiting verification by pharmacy. Pt with no complaints at this time.
--- NOTE | 2022-05-24 11:04 | P.EN_ITS ---
Event Note Date of Service: 05/24/22 Event Note: Day hospitalist update S: No chest pain currently No dyspnea No heparin gtt O: Temp Pulse Resp BP Pulse Ox O2 Del Method 97.2 F 60 13 138/71 99 05/24/22 07:30 05/24/22 09:11 05/24/22 09:11 05/24/22 09:11 05/24/22 07:30 05/24/22 07:30 Gen: in no acute distress HEENT: sclera anicteric, moist mucus membranes Neck: supple Lungs: clear to auscultation bilaterally Heart: regular rate and rhythm, no murmurs Abd: soft, non-tender, non-distended Ext: no edema Skin: warm/well-perfused Neuro: alert and oriented x3, no focal findings Psych: appropriate affect CTA chest 1.? No evidence of aortic aneurysm or dissection. 2.? Multiple scattered subcentimeter lung nodules, greatest in number towards the lung bases. These are nonspecific and may be infectious/inflammatory in etiology, though pulmonary metastases could also have this appearance. Clinical correlation is recommended. If no prior studies are available to assess chronicity, follow-up chest CT in 3 months is recommended. 3.? Colonic diverticulosis without convincing diverticulitis. A/P: hospital day#1 66yo F visiting from [place] with PMHx HTN, HLD, preDM presenting with chest pain and elevated BP # NSTEMI - heparinization, ASA, high-intensity statin, beta-audrey. Cardiology consulted. Limited TTE tomorrow then likely transfer to [facility] for cardiac catheterization # HTN emergency - resolving, resumed home carvedilol but at higher dose, added amlodipine # hypothyroidism - continue LT4 # multiple pulmonary nodules - respiratory pathogen panel, procalcitonin, repeat CT chest in 3 mo # VTE ppx: UFH In my clinical judgment, the patient requires continued hospitalization for the following reasons: IV heparinization and eventual caradiac catheterization
--- NOTE | 2022-05-24 11:07 | PC.NURSE ---
pt's heparin drip dose showing up incorrectly in computer. Confirmed with pharmacy pt dose is 14 units/hr, started at 8a, PTT due at 2p. Confirmed with oncoming JOSH Montalvo, who visually verified the dose. neither of us can cosign the dose screen. Pharmacy aware, also confirmed to pharmacy that dose is 14 units/hr.
[2022-05-24] MEDS: Heparin Sodium,Porcine/1/2NS 25,000 UNIT/250 ML IV.SOLN 12.75 UNIT IVCONT (11:53)
[2022-05-24 12:23] LABS: Procalcitonin 0.02 ng/mL
[2022-05-24] MEDS: amLODIPine Besylate 5 MG TABLET PO (12:39)
[2022-05-24] MEDS: Levothyroxine Sodium 50 MCG TABLET PO (12:39)
[2022-05-24 15:34] LABS: PTT Heparin Drip > 200.0 SEC (53-77.9)
--- NOTE | 2022-05-24 16:16 | PC.NURSE ---
Heparin problems... I took over the pt at 1050 this morning. When I arrived the previous nurse needed a cosign on a dosage change on the heparin. The nurse stated that the intial dose was charged wrong at 26 unit/kg/hour. The correct dosage was 14 units/kg/hr and that was what the pump was set at when I arrived. The nurse stated it was always running at 14 units/kg/hr. Ptt heparin drip lab test at 1400 showed >200, previous test at 0700 was 32. Infusion was stopped and hospitalist was notified.
[2022-05-24 18:04] LABS: PTT Heparin Drip 65.9 SEC (53-77.9)
[2022-05-24] MEDS: Atorvastatin Calcium 80 MG TABLET PO (21:11)
[2022-05-24] MEDS: carvediloL 12.5 MG TABLET PO (21:11)
--- NOTE | 2022-05-24 23:21 | PC.NURSE ---
Care of patient assumed now. She is alert, oriented x4, watching TV. HR NSR 60s on telemetry. Patient denies chest pain at this time. Heparin drip confirmed, running at 4un/kg/hr (which is ordered dose). call marr within reach. next PTT at 0215
[2022-05-25 01:05] VITALS: BP 137/87; PULSE 60; RESP 16; TEMP 35.9; O2SAT 95
[2022-05-25] MEDS: Heparin Sodium,Porcine 5,000 UNIT/ML VIAL 7300 UNIT IVPUSH (03:01)
[2022-05-25] MEDS: Levothyroxine Sodium 50 MCG TABLET PO (05:21)
[2022-05-25 06:12] VITALS: BP 139/71; PULSE 60; RESP 16; TEMP 36.2; O2SAT 97
[2022-05-25 06:14] VITALS: BMI 36.1
--- NOTE | 2022-05-25 07:00 | CA_ITS ---
Transthoracic Echocardiogram Patient (Last, First, Middle): Marli Momin, Gender: Female Date of : 1955 Age: 66 Procedure Date: 05/25/2022 Procedure Type: Transthoracic Echocardiogram Location: ER Height: 162.56 cm Weight: 73.48 kg BSA: 1.79 m2 Heart Rate: 60 bpm BP: 139 / 71 mmHg Architectural Superintendent: SB Referring MD: Brayan Bennett MD Symptoms: elevated trop Study Quality: Adequate ECG Rhythm: Sinus Conclusions: - Normal left ventricular size and systolic function. The visually estimated ejection fraction is between 60-65%. - The basal inferior segment is hypokinetic. - Normal right ventricular cavity size and systolic function. - The left atrium is mildly dilated. The right atrium is normal in size. Findings Left Ventricle Normal left ventricular size and systolic function. The visually estimated ejection fraction is between 60-65%. There is evidence of regional wall motion abnormalities. Abnormal diastolic function is noted. Spectral Doppler is indicative of an impaired relaxation filling pattern. E/E prime ratio is between 8 and 15 consistent with indeterminate filling pressures. There is mild septal asymmetric hypertrophy. Wall Motion Rest Echo Findings The basal inferior segment is hypokinetic. Right Ventricle Normal right ventricular cavity size and systolic function. Atria The left atrium is mildly dilated. The right atrium is normal in size. Aortic Valve There is a normal trileaflet aortic valve. There is no aortic valve stenosis. There is no aortic valve regurgitation. Mild calcification of the non coronary cusp. Mitral Valve Normal mitral valve structure and function. There is no mitral valve regurgitation. There is no mitral valve stenosis. Pulmonic Valve Normal pulmonic valve structure and function. There is trace pulmonic valve regurgitation. Tricuspid Valve Normal tricuspid valve structure and function. There is trace tricuspid valve regurgitation. Normal right atrial pressure. There is no evidence of pulmonary hypertension. Great Vessels All visible segments of the aorta are normal in size. The visualized portions of the pulmonary artery and branches are normal. Venous The inferior vena cava is normal in size and collapses greater than 50% with inspiration. Pericardium/Pleural There is no evidence of pericardial effusion. Prior Study Comparison No prior study available for comparison. Measurements 2D Linear Measurements IVSd: 1.13 0.6-0.9/0.6-1.0 cm LVIDd: 4.45 3.9-5.3/4.2-5.9 cm LVIDd Index: 2.49 2.4-3.2/2.2-3.1 cm/m2 LVIDs: 2.77 2.0-3.6 cm LVPWd: 0.77 0.7-1.1 cm LA Diam: 3.50 2.7-3.8/3.0-4.0 cm LAIDs Index: 1.96 1.5-2.3 cm/m2 LV Mass: 174.02 67-162/88-224 g LV Mass Index: 97.22 43-95/49-115 g/m2 LVOT Diam: 2.00 3.0+(-)1.3 cm 2D Systolic Function EF 4C: 53.90 >55% EF 2C: 65.90 >55% EF BiP: 59.20 >55% Mitral Valve MV Pk E: 0.66 MV PK A: 0.81 MV Decel Time: 221.00 E/A: 0.80 E'Lateral: 7.07 E'Medial: 4.24 E/E' Med: 15.60 E/E' Lat: 9.30 PHT: 65.00 MVA PHT: 3.38 Decel [place]: 2.98 Aortic Valve AoV Pk Merlin: 1.12 AoV Pk Grad: 5.00 LEE: 2.54 LVOT LVOT Pk Merlin: 0.91 LVOT Mn Merlin: 0.64 LVOT VTI: 0.21 LVOT Pk Grad: 3.00 LVOT Mn Grad: 2.00 LVOT Diam: 2.00 LVOT Area: 3.14 Diastolic Function MV Pk E: 0.66 MV Pk A: 0.81 E/A: 0.80 E'Medial: 4.24 E/E' Med: 15.60 E' Laterial: 7.07 E/E' Lat: 9.30 Right Ventricle TAPSE (mm): 15.90 TVS' Merlin: 8.90 Tricuspid Valve TR Pk Merlin: 2.13 TR Pk Grad: 18.00 RA Press: 3.00 RVSP: 21.00 Great Vessels Aorta Sinus of Valsalva: 3.00 2.0-3.5 cm Ao Asc: 3.20 2.1-3.4 cm Pulmonary Valve PV Pk Merlin: 1.03 Peak PV Grad: 4.00 Updated in Other Vendor System with Status of Final Maximino Baker MD electronically signed on 05/25/2022 12:15:50 PM with status of Final
--- NOTE | 2022-05-25 07:49 | PC.NURSE ---
pt is a/o x 4 no sob/jadiel noted lungs - cta, heart sound regular. speaks in full sentences. abd soft, non-tender, bs = x 4 quads, bm x 1 yestrday., pt is aware, of plan of care. heparin drip at 8u/kg/hr.,
[2022-05-25] MEDS: 0.9 % Sodium Chloride Flush 3 ML SYRINGE IVFLUSH (07:55)
[2022-05-25] MEDS: amLODIPine Besylate 5 MG TABLET PO (07:56)
[2022-05-25] MEDS: hydroCHLOROthiazide 25 MG TABLET PO (07:56)
[2022-05-25] MEDS: Furosemide 20 MG TABLET PO (07:56)
[2022-05-25] MEDS: carvediloL 12.5 MG TABLET PO (07:56)
[2022-05-25] MEDS: Aspirin 81 MG TAB.CHEW PO (07:57)
--- NOTE | 2022-05-25 08:41 | PC.NURSE ---
BEDSIDE ECHOCARDIOGRAM IS BEING DONE AT THIS TIME.
[2022-05-25 09:18] LABS: Hematocrit 41.3 % (37.0-47.0); Hemoglobin 13.3 g/dl (12.0-16.0); Mean Corpuscular HGB Conc 32.2 g/dl (31.0-35.0); Mean Corpuscular Hemoglobin 28.5 pg (27.0-33.0); Mean Corpuscular Volume 88.6 fL (80.0-98.0); Mean Platelet Volume 8.7 fL (9.4-12.3); Platelet Count 174 X10*3/uL (160-400); Red Blood Count 4.66 X10*6/uL (4.20-5.50); Red Cell Distribution Width 14.8 % (11.0-16.0); White Blood Count 6.2 X10*3/uL (4.8-10.8)
[2022-05-25 09:27] LABS: PTT Heparin Drip 97.2 SEC (53-77.9)
--- NOTE | 2022-05-25 09:39 | P.CDIC_ITS ---
CDI Concurrent Query Documentation Clarification: PHYSICIAN'S DOCUMENTATION REQUEST Date of Query: 05/25/22 0939 Patient Name: Marli Álvarez Admit Date: 05/24/22 Dear Doctor, A review of the medical record indicates additional documentation may be needed. Please review below and update the documentation accordingly. Risk Factors/Clinical Indicators/Treatments Nursing notes height and weight - BMI 34.5 5' 4 Obese class I If possible, please provide an associated diagnosis related to the abnormal BMI, such as: For a BMI >= 30: * Overweight * Obesity * Due to excess calories * Drug induced * Due to other cause Or: * BMI is not significant * Other (please specify) * Unable to determine Use of terms such as suspected, likely, concern for, or probable (associated with a specific diagnosis that is being evaluated, monitored, or treated as if it exists) are acceptable and can be coded in the inpatient setting, when documented at the time of discharge. Thank you, [facility], [facility]IS Extension: [phone] Please use your independent medical judgment in providing your response. THIS QUERY IS PART OF THE PERMANENT MEDICAL RECORD Provider Response: Obesity
--- NOTE | 2022-05-25 10:00 | PC.NURSE ---
PTTHD 97.2 HELD AT 0950 TO BE RESTARTED AT 1050 AT 5U/KG/HR (PER PHARMACY/HEPARIN POLICY). PTTHD LAB RE-DRAW IS AT 1630. PT AWARE OF PLAN OF CARE. DR. PRYOR (INFANTRYMAN) AT BEDSIDE AT LENGTH WITH PT AND FAMILY MEMBER PT AWARE OF PLAN OF CARE TO BE NPO AND TRANSFER TO [facility] FOR FOLLOW-UP CARE.
[2022-05-25 11:20] LABS: INTERNATIONAL NORM RATIO 1.2 (0.9-1.1); Prothrombin Time 13.4 SEC (10.0-13.1)
--- NOTE | 2022-05-25 11:44 | MHC.CM.PN ---
pt going to [facility] for cardiac cath
--- NOTE | 2022-05-25 11:46 | P.DS_ITS ---
DS: Providers Provider Date of Service: 05/25/22 Date of admission: 05/24/22 03:19 Date of discharge: 05/25/22 Primary care physician: Unknown Physician Consults: 05/24/22 03:20 Consult to Cardiology Routine Consulting Provider: Deandre Gutierrez Reason for consultation: elevated trop Has provider been notified: No DS: Transfer Hospital Acceptance Reason for Transfer: cardiac catheterization [place] [facility] [place]: Diagnosis Discharge Diagnosis (1) NSTEMI (non-ST elevated myocardial infarction): Status: Acute (2) Hypertensive emergency: Status: Acute (3) Chest pain: Status: Acute (4) Obesity: Status: Acute (5) Multiple pulmonary nodules: Status: Acute DS: Summary Hospital Course Hospital Course: from admission H+P by hospitalist Brayan Bennett, 05/24/22: 66-year-old female with past medical history of hypertension , hypothyroidism, asthma presents to the hospital with complaints of midsternal chest pain.? Patient reports that the pain started while she was at a restaurant, the pain is on the left side of her chest, severe, radiating to left arm, lasted until she arrived at the ED, associated with some anxiety and shortness of breath.? Patient denied having any headache, no change in vision, no palpitations, no abdominal pain nausea or vomiting, no diarrhea constipation, no urinary symptoms and no lower extremity edema Of note patient comes from [place], she reports that she was seen in [place] few days before for the same pain and at that time they told her that she was having a panic attack as her blood pressure was significantly elevated.? On arrival to the ED her vitals are significant for a systolic blood pressure of 204/127, Labs are significant for WBC count of 8.3, hemoglobin of 13.3, CBC and CMP otherwise unremarkable.? Troponin of 8.9 that increased to 366 increased to [address] T-wave changes This 66yo F visiting from [place] with PMHx HTN, HLD, preDM presenting with chest pain and elevated BP was admitted for NSTEMI. High-sensitivity Tn-I peaked at 405, then came down to 374. EKG on hospital d#2 showed new inferior and anterolateral T wave inversions. Echocardiography demonstrated hypokinetic basal inferior sigment. She was given IV heparin, aspirin, high-intensity statin, and beta-audrey. HTN emergency resolved with increasing carvedilol and adding amlodipine. She was seen by Cardiology and [place] [facility] [place]. Incidentally, she was found to have multiple pulmonary nodules, and a repeat CT of the chest in 3 months is recommended. Time Spent with Patient Time attestation: Total time spent providing and/or coordinating discharge services: Discharge coordination time: Greater than 30 minutes Quality: Safe Use of Opioids Does Pt have an Active Cancer Diagnosis on the Problem List?: No Quality: Stroke Does the patient have a stroke diagnosis?: No Physical Exam Vital Signs: Vital Signs: Last Vital Signs Temp 97.1 F 05/25/22 06:12 Pulse 60 05/25/22 06:12 Resp 16 05/25/22 06:12 BP 139/71 05/25/22 06:12 Pulse Ox 97 05/25/22 06:12 O2 Del Method 05/25/22 06:12 BMI result Body Mass Index 36.1 Gen: in no acute distress HEENT: sclera anicteric, moist mucus membranes Neck: supple Lungs: clear to auscultation bilaterally Heart: regular rate and rhythm, no murmurs Abd: soft, non-tender, non-distended, obese Ext: no edema Skin: warm/well-perfused Neuro: alert and oriented x3, no focal findings Psych: appropriate affect DS: Data Data Completed and Pending Completed studies during hospitalization [Text1]: Laboratory Results WBC 6.2 X10*3/uL (4.8-10.8) 05/25/22 09:09 RBC 4.66 X10*6/uL (4.20-5.50) 05/25/22 09:09 Hgb 13.3 g/dl (12.0-16.0) 05/25/22 09:09 Hct 41.3 % (37.0-47.0) 05/25/22 09:09 MCV 88.6 fL (80.0-98.0) 05/25/22 09:09 MCH 28.5 pg (27.0-33.0) 05/25/22 09:09 MCHC 32.2 g/dl (31.0-35.0) 05/25/22 09:09 RDW 14.8 % (11.0-16.0) 05/25/22 09:09 Plt Count 174 X10*3/uL (160-400) 05/25/22 09:09 MPV 8.7 fL (9.4-12.3) L 05/25/22 09:09 Immature Gran % (Auto) 0.3 % (0.0-0.4) 05/24/22 06:28 Neut % (Auto) 53.8 % (45-73) 05/24/22 06:28 Lymph % (Auto) 36.8 % (20-40) 05/24/22 06:28 [place] % (Auto) 7.3 % (2-11) 05/24/22 06:28 Eos % (Auto) 1.5 % (0-4) 05/24/22 06:28 Baso % (Auto) 0.3 % (0-2) 05/24/22 06:28 Lymph # (Auto) 2.7 X10*3/uL (1.2-4.9) 05/24/22 06:28 [place] # (Auto) 0.5 X10*3/uL (0.1-1.2) 05/24/22 06:28 Eos # (Auto) 0.1 X10*3/uL (0.0-0.4) 05/24/22 06:28 Baso # (Auto) 0.0 X10*3/uL (0.0-0.2) 05/24/22 06:28 Abs Immat Gran (auto) 0.02 X10*3/uL (0.00-0.03) 05/24/22 06:28 Absolute Neuts (auto) 4.0 x10*3/uL (2.0-8.3) 05/24/22 06:28 Absolute Nucleated RBC 0.000 X10*3/uL (0.0-0.012) 05/25/22 09:09 Nucleated RBC % (auto) 0.0 /100WBC (0.0-0.2) 05/25/22 09:09 PT 13.4 SEC (10.0-13.1) H 05/25/22 09:09 PT Cancelled 05/25/22 09:09 INR 1.2 (0.9-1.1) H 05/25/22 09:09 INR Cancelled 05/25/22 09:09 aPTT Heparin Protocol 97.2 SEC (53-77.9) H D 05/25/22 09:09 Sodium 142 mmol/L (135-145) 05/24/22 06:33 Potassium 3.8 mmol/L (3.3-5.1) 05/24/22 06:33 Chloride 106 mmol/L (96-108) 05/24/22 06:33 Carbon Dioxide 24 mmol/L (22-29) 05/24/22 06:33 Anion Gap 16 (12-20) 05/24/22 06:33 BUN 11 mg/dL (9-16) 05/24/22 06:33 Creatinine 0.74 mg/dL (0.5-1.4) 05/24/22 06:33 Estim Creat Clear Calc 81.7 05/24/22 06:33 Estimated GFR > 60 05/24/22 06:33 Random Glucose 92 mg/dL (60-115) 05/24/22 06:33 Estimat Average Glucose 108 mg/dL 05/24/22 06:33 Hemoglobin A1c % 5.4 % 05/24/22 06:33 Calcium 8.9 mg/dL (8.4-10.2) 05/24/22 06:33 Total Bilirubin 0.5 mg/dL (0.0-1.0) 05/23/22 23:51 AST 22 U/L (5-31) 05/23/22 23:51 ALT 16 U/L (0-31) 05/23/22 23:51 Alkaline Phosphatase 78 U/L (39-117) 05/23/22 23:51 Troponin I High Sens 373.8 ng/L (<3.5-17.0) H* 05/24/22 06:31 Total Protein 7.3 g/dL (6.5-8.0) 05/23/22 23:51 Albumin 4.2 g/dL (3.5-5.0) 05/23/22 23:51 Triglycerides 51 mg/dL 05/24/22 06:33 Cholesterol 157 mg/dL 05/24/22 06:33 LDL Cholesterol, Calc 93 mg/dl 05/24/22 06:33 HDL Cholesterol 54 mg/dL 05/24/22 06:33 Procalcitonin 0.02 ng/mL 05/24/22 06:33 COVID-19 ([facility]) Negative (Negative) 05/24/22 09:36 COVID-19 Clin Com See Note 05/24/22 09:36 Impressions Abdomen/Pelvis CTA 05/24/22 01:20 EST IMPRESSION: 1. No evidence of aortic aneurysm or dissection. 2. Multiple scattered subcentimeter lung nodules, greatest in number towards the lung bases. These are nonspecific and may be infectious/inflammatory in etiology, though pulmonary metastases could also have this appearance. Clinical correlation is recommended. If no prior studies are available to assess chronicity, follow-up chest CT in 3 months is recommended. 3. Colonic diverticulosis without convincing diverticulitis. Chest CTA 05/24/22 01:30 EST IMPRESSION: 1. No evidence of aortic aneurysm or dissection. 2. Multiple scattered subcentimeter lung nodules, greatest in number towards the lung bases. These are nonspecific and may be infectious/inflammatory in etiology, though pulmonary metastases could also have this appearance. Clinical correlation is recommended. If no prior studies are available to assess chronicity, follow-up chest CT in 3 months is recommended. 3. Colonic diverticulosis without convincing diverticulitis. TTE 05/25/22 - Normal left ventricular size and systolic function. The? visually estimated ejection fraction is between 60-65%.? - The basal inferior segment is hypokinetic. ? - Normal right ventricular cavity size and systolic function.? ? - The left atrium is mildly dilated.? The right atrium is normal in size. ? Discharge Plan Discharge Anticipated Discharge Date/Time: 05/25/22 11:43 Patient Disposition: [facility] Discharge Diagnosis: NSTEMI, hypertensive emergency, multiple pulmonary nodules [incidental finding] Referrals: [facility] [Other] - 1 Week Physician,Unknown J [Primary Care Provider] - 1 Week Discharge Medications: New atorvastatin 80 mg Tablet 80 mg PO BEDTIME Qty: 1 0RF carvedilol 12.5 mg Tablet 12.5 mg PO BID Qty: 1 0RF Protocol: Hold for SBP/HR < HOLD for SBP < : 90 HOLD for HR < : 60 amlodipine 5 mg Tablet 5 mg PO DAILY Qty: 1 0RF Protocol: Hold for SBP< HOLD for SBP < : 90 heparin (porcine) 5,000 unit/mL Solution 3,600 unit IVPUSH PROTOCOL BOLUS PRN (Reason: 40 Unit/Kg - Heparin Protocol) Qty: 1 0RF heparin (porcine) 5,000 unit/mL Solution 7,300 unit IVPUSH PROTOCOL BOLUS PRN (Reason: 80 Unit/Kg - Heparin Protocol) Qty: 1 0RF heparin(porcine) in 0.45% NaCl 25,000 unit/250 mL Parenteral Solution 25,000 unit continuous IV infusion .Q0M Qty: 1 0RF Continued aspirin 81 mg tablet,delayed release (DR/EC) 1 tab PO DAILY temazepam 15 mg capsule 1 cap PO BEDTIME PRN (Reason: Insomnia) levothyroxine 50 mcg tablet 1 tab PO DAILY@0600 hydrochlorothiazide 25 mg tablet 1 tab PO DAILY furosemide 20 mg tablet 1 tab PO DAILY albuterol sulfate 90 mcg/actuation HFA aerosol inhaler 2 puff inhalation Q4-6H PRN (Reason: respiratory symptoms) Discontinued carvedilol 6.25 mg tablet 1 tab PO BID ibuprofen 600 mg tablet 1 tab PO Q8H PRN (Reason: Pain) rosuvastatin 10 mg tablet 1 tab PO BEDTIME Discharge Orders: Discharge Order (Routine); Ordered 05/25/22 Ordered By: Pasha Bolivar Diet: NPO for now Activity on Discharge: As tolerated Stand Alone Forms: Patient Portal Discharge page Care Plan Goals: cardiac health Health Concerns: NSTEMI, hypertensive emergency, multiple pulmonary nodules [incidental finding] Plan of Treatment: transfer to [facility] for cardiac catheterization repeat CT of the chest in 3 months upon your return to [place] Assessment: See Discharge Summary. Patient Instructions: Chest Pain (ED), DASH Eating Plan (ED), Hypertension (ED)
--- NOTE | 2022-05-25 12:02 | P.PNCA_ITS ---
Subjective Subjective Date of Service: 05/25/22 Interval history: Seen examined bedside. Denying any symptoms. EKG showing anterolateral T-wave inversions with prolonged QT interval of 484 milliseconds. There is also inferior T-wave inversions. These changes are new compared to EKG from yesterday. Physical Exam Vital Signs: Last Vital Signs Temp 97.1 F 05/25/22 06:12 Pulse 60 05/25/22 06:12 Resp 16 05/25/22 06:12 BP 139/71 05/25/22 06:12 Pulse Ox 97 05/25/22 06:12 O2 Del Method 05/25/22 06:12 BMI result Body Mass Index 36.1 GENERAL APPEARANCE: in no acute distress, pleasant. NECK: no carotid bruit, no jugular venous distention. SKIN: no suspicious lesions, warm and dry. HEART: no murmurs, regular rate and rhythm. LUNGS: clear to auscultation bilaterally. ABDOMEN: soft, nontender. EXTREMITIES: no edema. PERIPHERAL PULSES: equal. NEUROLOGIC: No gross deficits, AAO X 3 Objective Labs and Meds Result diagrams: 05/25/22 09:09 05/24/22 06:33 Lab results: Laboratory Results - last 24 hr 05/24/22 05/24/22 05/24/22 06:33 14:44 17:46 WBC RBC Hgb Hct MCV MCH MCHC RDW Plt Count MPV Absolute Nucleated RBC Nucleated RBC % (auto) PT INR aPTT Heparin Protocol > 200.0 H* D 65.9 D Procalcitonin 0.02 05/24/22 05/25/22 05/25/22 20:00 02:15 09:09 WBC 6.2 RBC 4.66 Hgb 13.3 Hct 41.3 MCV 88.6 MCH 28.5 MCHC 32.2 RDW 14.8 Plt Count 174 MPV 8.7 L Absolute Nucleated RBC 0.000 Nucleated RBC % (auto) 0.0 PT INR aPTT Heparin Protocol 32.0 L D 27.0 L Procalcitonin 05/25/22 05/25/22 09:09 09:09 WBC RBC Hgb Hct MCV MCH MCHC RDW Plt Count MPV Absolute Nucleated RBC Nucleated RBC % (auto) PT Cancelled 13.4 H INR Cancelled 1.2 H aPTT Heparin Protocol 97.2 H D Procalcitonin Progress Note: A&P Assessment and plan (1) NSTEMI (non-ST elevated myocardial infarction): Status: Acute Plan Pleasant 66-year-old female who is presenting for chest pain and left arm numbness in the setting of significantly elevated blood pressures. Her initial EKG has subtle inferior changes which have evolved at this stage and she has inferior as well as anterolateral T-wave inversions. The EKG is quite suspicious for LAD ischemia at this stage. She has been experiencing chest discomfort for long time and last episode was 3 weeks ago which was labeled as panic attack when she was in [place]. I have discussed in detail with her about potential options going forward. I explained to her that my suspicion is that there is underlying coronary disease and her presentation is due to acute coronary syndrome at this stage. She is agreeable for cardiac catheterization. We will keep her NPO and try to transfer today to cardiac catheterization today. Obviously if the specialist employee labor relations is too busy and we cannot reach her today then will try to do this tomorrow. This will also depend on clinical stability and if she has symptoms then she may need to be done earlier than later. Blood pressure control is improving with the current regimen. She is on amlodipine 5 mg, carvedilol 12.5 mg twice a day, Lasix 20 mg daily, and hydrochlorothiazide 25 mg daily. On heparin drip, aspirin and atorvastatin 80 mg once a day. Further recommendations will be given after cardiac catheterization. Thank you for allowing me to participate in the care of your patient. Please feel free to contact me if you have any questions. Time Spent With Patient Time: Total time spent is greater than 50% in coordination of care (as documented) at patient's floor/unit and/or counseling patient: Progress Note: Quality Stroke Does the patient have a stroke diagnosis?: No Procedures Date of Service Date of Service: 05/25/22
--- NOTE | 2022-05-25 15:14 | PC.NURSE ---
rn to [place] [facility] [place] [id number], room 14 [phone]) rhiannon kelly. pt is aware of plan of care.
[2022-05-25 15:19] VITALS: BP 116/74; PULSE 62; RESP 16; TEMP 36.6; O2SAT 98
== END 2022-05-25 12:40 | disposition short-term general hospital (02) | DRG 281 ==
LOC: HO.ED 05-24 01:06 → HO.EDOVER 05-24 05:07
PROVIDERS: Admitting Provider Internal Medicine; Emergency Provider Student in an Organized Health Care Education/Training Program; Visit Provider Family Medicine
DX: I21.4 Non-ST elevation (NSTEMI) myocardial infarction (principal); I16.1 Hypertensive emergency; J45.909 Unspecified asthma, uncomplicated; Z68.36 Body mass index [BMI] 36.0-36.9, adult; E66.9 Obesity, unspecified; E03.9 Hypothyroidism, unspecified; E78.5 Hyperlipidemia, unspecified; R73.03 Prediabetes; I10 Essential (primary) hypertension; R91.8 Other nonspecific abnormal finding of lung field; Z20.822 Contact with and (suspected) exposure to COVID-19; Z79.82 Long term (current) use of aspirin; Z79.890 Hormone replacement therapy; Z79.899 Other long term (current) drug therapy
CPT/HCPCS: 36415; 71275; 74174; 80048; 80053; 80061; 83036; 84145; 84484; 85025; 85027; 85610; 85730; 87635; 93005; 93306; 99285; Q9967

== ENCOUNTER → 2022-06-08 13:52 | Outpatient (BNVA) | payer MEDICARE, SELFPAY | PROVIDERS: Visit Provider Nurse Practitioner Family | DX: I21.4 Non-ST elevation (NSTEMI) myocardial infarction (principal); I10 Essential (primary) hypertension; E66.9 Obesity, unspecified; Z98.890 Other specified postprocedural states | CPT/HCPCS: 99212 ==